=== PATIENT | female | born 1965 | race Caucasian/White ===

== ENCOUNTER 2023-02-26 09:09 | Day surgery (SDC) | payer MEDICAID ==
[2023-02-23 15:52] LABS: BASOPHILS # (AUTO) 0.1 X10'3 (0-0.2); BASOPHILS % (AUTO) 1.3 % (0-1); EOSINOPHILS # (AUTO) 0.5 X10'3 (0-0.9); EOSINOPHILS % (AUTO) 5.6 % (0-6); LYMPHOCYTES # (AUTO) 1.7 X10'3 (1.1-4.8); LYMPHOCYTES % (AUTO) 19.3 % (21-51); MEAN CORPUSCULAR HEMOGLOBIN 30.6 PG (27.0-31.0); MEAN CORPUSCULAR HGB CONC 33.7 g/dL (33.0-36.5); MEAN CORPUSCULAR VOLUME 90.9 FL (78-98); MEAN PLATELET VOLUME 8.2 FL (7.4-10.4); MONOCYTES # (AUTO) 0.5 X10'3 (0-0.9); MONOCYTES % (AUTO) 5.8 % (2-12); NEUTROPHILS # (AUTO) 6.1 X10'3 (1.8-7.7); PRE OP HEMATOCRIT 40.4 % (35.0-45.0); PRE OP HEMOGLOBIN 13.6 g/dL (12.0-16.0); PRE OP PLATELET COUNT 251 X10'3 (140-440); RED BLOOD COUNT 4.44 X10'6 (4.20-5.60); RED CELL DISTRIBUTION WIDTH 14.3 % (11.5-14.5)
[2023-02-23 16:07] LABS: ALBUMIN 3.5 G/DL (3.4-5.0); ALKALINE PHOSPHATASE 126 IU/L (46-116); BLOOD UREA NITROGEN 9 MG/DL (7-18); BUN/CREATININE RATIO 11.3 (10.0-20.0); CALCIUM 9.2 MG/DL (8.5-10.1); CHLORIDE 108 MMOL/L (99-107); PRE OP ANION GAP 12 (8-16); PRE OP AST 46 U/L (10-37); PRE OP BILIRUB, TOTAL 0.2 MG/DL (0.0-1.0); PRE OP GLUCOSE 100 MG/DL (70-104); PRE OP POTASSIUM 3.8 MMOL/L (3.4-5.1); PRE OP SODIUM 145 MMOL/L (135-145); TOTAL PROTEIN 7.1 G/DL (6.4-8.2); eGFR 73 ML/MIN
[2023-02-23 16:51] LABS: PRE OP ALT 104 U/L (30-65)
[~2023-02-26] VITALS: Ht 175.3 cm; Wt 115.6 kg
[2023-02-26] VITALS (20 sets, daily range): BP systolic 120–151; BP diastolic 67–92; PULSE 80–96; RESP 13–20; TEMP 98.1; O2SAT 91–99
[~2023-02-26 09:09] MED LIST: LEVO150T PO; cefazolin 2gm/D5W 100mL 100 ML IV ONE; famotidine 20mg tablet PO ONE; ringers solution, lacted 1,000 ML IV SCH
[2023-02-26] MEDS ORDERED: BUPIVAcaine/PF 2.5mg/ml (0.25%) 10ml vial ONE (10:47)
[2023-02-26] MEDS ORDERED: LIDOcaine 1% (10mg/ml)w/preservative inj. 20ml MDV ONE (10:47)
[2023-02-26] MEDS ORDERED: BUPIVACAINE liposomal/PF 13.3 MG/ML vial IM ONE (10:47)
[2023-02-26] MEDS ORDERED: methylene blue (5mg/ml) 50mg/10ml ampul IV ONE (10:47)
[2023-02-26] MEDS ORDERED: proCHLORperazine 10 MG/2 ml inj IV PRN (11:20)
[2023-02-26] MEDS ORDERED: labetalol 20mg/4ml (5mg/ml) syringe IV PRN (11:20)
[2023-02-26] MEDS ORDERED: ringers solution, lacted 1,000 ML IV SCH (11:20)
[2023-02-26] MEDS ORDERED: HYDROmorphone/PF 0.2 MG/ML SYRINGE IV PRN ×2 (11:20)
[2023-02-26] MEDS ORDERED: morphine 2 MG/ML inj. syringe IV PRN (11:20)
[2023-02-26] MEDS ORDERED: acetaminophen 1,000mg/100ml IV 100 ML IV PRN (11:20)
[2023-02-26] MEDS ORDERED: ondansetron/PF 4mg/2ml inj IV PRN (11:20)
[2023-02-26] MEDS ORDERED: hydrALAZINE 20mg/ml inj. IV PRN (11:20)
[2023-02-26] MEDS ORDERED: midazolam 1 mg/ML 2ml injection ONE (11:26)
[2023-02-26] MEDS ORDERED: ondansetron/PF 4mg/2ml inj ONE (11:56)
[2023-02-26] MEDS ORDERED: dexamethasone sod phosphate 4mg/ml inj. ONE (11:56)
[2023-02-26] MEDS ORDERED: fentaNYL /PF 50mcg/ml 5ml ampule ONE (11:56)
[2023-02-26] MEDS ORDERED: rocuronium 10mg/ml inj IV ONE (11:56)
[2023-02-26] MEDS ORDERED: LIDOcaine 2% (20mg/ml) 5ml vial ONE (11:56)
[2023-02-26] MEDS ORDERED: propofol inj 20 ML IV ONE (11:56)
[2023-02-26] MEDS ORDERED: morphine 4 MG/ML inj SYRINge IV ONE (13:33)
[2023-02-26] MEDS ORDERED: neostigmine methylsulfate 1 MG/ML 10ml vial ONE (13:34)
[2023-02-26] MEDS ORDERED: glycopyrrolate 0.2mg/ml inj ONE (13:34)
--- NOTE | 2023-02-26 13:54 | NUR ---
Received from OR via [facility], accompanied by Anesthesiologist DR SOSA and report given by Anesthesiologist AND SALES AND MARKETING ENGINEER. PT AWAKE, SOMEWHAT DISORIENTED, PT WAS INCONTINENT ON THE WAY OUT OF THE OR, BED CHANGED, SKIN CARE PROVIDED AND CLEANED PT. PT REMAINS DISGRUNTLED, SUPPORT OFFERED. Addendum: 02/26/23 at 1432 by Diana Zuniga RN Amended: Links added.
[2023-02-26] MEDS: morphine 4 MG/ML inj SYRINge IV PRN ×2 (14:21→14:36)
[2023-02-26] MEDS ORDERED: HYDROcodone/acetaminophen 5mg/325mg tablet PO ONE (14:40)
[2023-02-26] MEDS ORDERED: ketorolac trometh. 30mg/ml inj. IV ONE (16:10)
--- NOTE | 2023-02-26 17:14 | NUR ---
PAIN IS IMPROVED, NAUSEA RESOLVED. PT REMAINS DROWSY BUT IS APPROPRIATE. DR FRY PRESENT, PTS CAREGIVER PRESENT. PT NEEDS ASSISTANCE AT HOME AND OVERNIGHT, PT CALLED HER NEIGHBOR AND CONFIRMED THAT SHE WILL BE AT THE HOUSE WHEN SHE GETS HOME AND WILL STAY OVERNIGHT TO ASSIST W/PT. D/C INSTRUCTIONS GIVEN AND GONE OVER W/PTS CAREGIVER WHO VERBALIZED UNDERSTANDING. COPY SENT HOME W/PT. PT UP AND ABLE TO AMBULATE SHORT DISTANCE SAFELY. PT D/CD TO HOME VIA W/C TO PRIVATE VEHICLE W/O INCIDENT. Addendum: 02/26/23 at 1847 by Diana Zuniga RN Amended: Links added.
== END 2023-02-26 17:14 | disposition home or self-care (01) ==
LOC: PAS 09:09
PROVIDERS: ATTEND Surgery
DX: C50.411 Malignant neoplasm of upper-outer quadrant of right female breast (principal); E03.9 Hypothyroidism, unspecified; J44.9 Chronic obstructive pulmonary disease, unspecified; G47.33 Obstructive sleep apnea (adult) (pediatric); E66.9 Obesity, unspecified; Z68.37 Body mass index [BMI] 37.0-37.9, adult; F32.A Depression, unspecified; F41.9 Anxiety disorder, unspecified; Z87.891 Personal history of nicotine dependence; Z79.899 Other long term (current) drug therapy; Z72.89 Other problems related to lifestyle; Z98.890 Other specified postprocedural states
CPT/HCPCS: 19301; 38525; 38900; 76098; 76998; 80053; 82948; 85025; 93005; J0131; J0690; J0780; J1100; J1885; J2250; J2270; J2405; J2704; J2710; J3010; J3490; J7030; J7120; Q9968; Z7506; Z7508; Z7512; A4215; A4615; A4618; A6258; A6449; A7000; C9290